=== PATIENT | male | born 1980 | race African-American/Black ===

== ENCOUNTER 2016-10-20 18:45 | Emergency (ER) | payer OTHER ==
[2016-10-20 18:49] VITALS: BP 143/78; PULSE 80; TEMP 97.8; BMI 30.3
[2016-10-20] MEDS ORDERED: diazePAM 5 MG TABLET ONE ×2 (19:18→20:26)
[2016-10-20] MEDS ORDERED: diazePAM 5 MG TABLET PO ONE ×2 (19:18→20:08)
[2016-10-20] MEDS ORDERED: KETOROLAC TROMETHAMINE 60 MG/2 ML VIAL IM ONE (19:18)
[2016-10-20] MEDS ORDERED: KETOROLAC TROMETHAMINE 60 MG/2 ML VIAL ONE (19:18)
--- NOTE | 2016-10-20 19:18 | PDOC ---
History of Present Illness - General Chief Complaint: Back Pain Stated Complaint: BACK PAIN Time Seen by Provider: 10/20/16 18:57 - History of Present Illness Initial Comments: 10/20/16 19:05 CHIEF COMPLAINT: back pain HISTORY OF PRESENT ILLNESS: 35 yo M with no PMH presents to ED with back pain. Patient states he was "pulling myself up onto the fire truck and suddenly felt severe pain to my back, mostly towards the left side." Patient denies any trauma to the back or any other part of body, but states that he "feels like my back is going to pop if I sit up straight." Patient denies any shortness of breath or chest pain. Denies nausea, vomiting, diarrhea, urinary symptoms. No recent travel or sick contacts. PAST MEDICAL HISTORY: Denies past medical history FAMILY HISTORY: Denies SOCIAL HISTORY: Occupation:[employer] Denies tobacco, alcohol, illicit drug use. SURGICAL HISTORY: Denies ALLERGIES: No known drug allergies REVIEW OF SYSTEMS General/Constitutional: Denies fever or chills. Denies weakness, weight change. HEENT: Denies change in vision. Denies ear pain or discharge. Denies sore throat. Cardiovascular: Denies chest pain or shortness of breath. Respiratory: Denies cough, wheezing, or hemoptysis. Gastrointestinal: Denies nausea, vomiting, diarrhea or constipation. Denies rectal bleeding. Genitourinary: Denies dysuria, frequency, or change in urination. Musculoskeletal: Severe pain to middle and lower back. Skin and breasts: Denies rash or easy bruising. Neurologic: Denies headache, vertigo, loss of consciousness, or loss of sensation. PHYSICAL EXAM General Appearance: Well-appearing, appropriately dressed. No apparent distress , no intoxication. HEENT: EOMI, PERRLA, normal ENT inspection, normal voice, TMs normal, pharynx normal. No conjunctival pallor. No photophobia, scleral icterus. Neck: No tenderness to cervical spine. Supple. Trachea midline. No tenderness, rigidity, carotid bruit, stridor, lymphadenopathy, or thyromegaly. Respiratory/Chest: Lungs CTAB. No shortness of breath, chest tenderness, respiratory distress, accessory muscle use. No crackles, rales, rhonchi, stridor , wheezing, dullness Cardiovascular: RRR. S1, S2. Gastrointestinal/Abdominal: Normal bowel sounds. Abdomen soft, non-distended. No tenderness or rebound tenderness. No organomegaly, pulsatile mass, guarding , hernia, hepatomegaly, splenomegaly. Lymphatic: No adenopathy, tenderness. Musculoskeletal/Extremities: Limited ROM to arms due to pain, unable to complete active/passive ROM of arms/shoulders bilaterally. Marked tenderness to muscles lateral to thoracic spine on light palpation. No tenderness to thoracic or lumbar spine. Normal capillary refill. Pelvis Stable. No CVA tenderness. No tenderness to extremities, pedal edema, swelling, erythema or deformity. Full ROM to legs bilaterally. No loss of sensation, no saddles anesthesia, no loss of bowel or bladder function. Integumentary: Appropriate color, dry, warm. No cyanosis, erythema, jaundice or rash Neurologic: senior property accountant II-XII intact. Fully oriented, alert. Appropriate mood/affect. Motor strength 5/5. No appreciable EOM palsy, facial droop or sensory deficit. 10/20/16 22:07 Past History - Past Medical History Allergies/Adverse Reactions: Allergies Allergy/AdvReac Type Severity Reaction Status Date / Time No Known Allergies Allergy Verified 10/20/16 18:47 Home Medications: Ambulatory Orders Prednisone [Deltasone -] 60 mg PO DAILY #12 tablet 11/12/15 Cyclobenzaprine HCl [Flexeril -] 10 mg PO TID PRN #21 tablet 10/20/16 Naproxen [Naprosyn -] 500 mg PO BID #14 tablet 10/20/16 Thyroid Disease: No - Immunization History Immunization Up to Date: Yes - Psycho/Social/Smoking Cessation Hx Anxiety: No Suicidal Ideation: No Smoking Status: No Smoking History: Never smoked Have you smoked in the past 12 months: No Number of Cigarettes Smoked Daily: 0 Information on smoking cessation initiated: No Hx Alcohol Use: No Drug/Substance Use Hx: No Substance Use Type: None *Physical Exam - Vital Signs Last Vital Signs Temp Pulse Resp BP Pulse Ox 97.8 F 80 20 143/78 98 10/20/16 18:47 10/20/16 18:47 10/20/16 18:47 10/20/16 18:47 10/20/16 18:47 Medical Decision Making - Medical Decision Making 10/20/16 19:26 35 yo M with no PMH presents to ED with back pain. Likely muscle strain/spasm secondary to improper body mechanics while "pulling self up onto fire truck." -60 mg Toradol IM -5 mg Valium po. Patient states he arrived via ambulance and will have someone come pick him up from ER. 10/20/2016 20:13 Patient reassessed; states that he has little to no improvement after medication. Additional 5 mg Valium ordered, will reassess. Patient reassessed, states he is feeling much better after the medication. -250 mg Naproxen bid x 7 days -5 mg cyclobenzaprine qhs x 7 days Advised patient to take medication as prescribed and not to operate any vehicles or machinery while on cyclobenzaprine. Advised patient to follow up with orthopedics if pain persists longer than one week. Patient verbalized understanding and agrees to plan. *DC/Admit/Observation/Transfer Diagnosis at time of Disposition: Back muscle spasm - Discharge Dispostion Disposition: HOME Condition at time of disposition: Stable Admit: No - Prescriptions Prescriptions: Cyclobenzaprine HCl [Flexeril -] 10 mg PO TID PRN #21 tablet PRN Reason: Muscle Spasms Naproxen [Naprosyn -] 500 mg PO BID #14 tablet - Referrals Referrals: Ryan Grant MD [Primary Care Provider] - Michelet Cuellar MD [Staff Physician] - - Patient Instructions Printed Discharge Instructions: DI for Muscle Strain, DI for Thoracic Back Pain Additional Instructions: As discussed, please take medication as prescribed. Please do NOT operate machinery or vehicles when taking cyclobenzaprine. Do not engage in any strenuous activities for the next week. Please follow up with orthopedics within the next 3-5 days. If you develop shortness of breath, chest pain, headache, nausea, vomiting, or any new or worsening symptoms, please return to the ER immediately. - Post Discharge Activity Work/School Note: Back to Work
== END 2016-10-20 20:55 | disposition home or self-care (01) ==
LOC: JERFT 18:45
PROC: 3E0233Z Introduction of Anti-inflammatory into Muscle, Percutaneous Approach (ICD-10-PCS; principal; 2016-10-20)
DX: M62.830 Muscle spasm of back (principal); X50.0XXA Overexertion from strenuous movement or load, initial encounter; V68.4XXA Person boarding or alighting a heavy transport vehicle injured in noncollision transport accident, initial encounter; Y92.488 Other paved roadways as the place of occurrence of the external cause; Y93.89 Activity, other specified; Y99.0 Civilian activity done for income or pay
CPT/HCPCS: 99281-25

== ENCOUNTER 2017-02-23 12:22 | Emergency (ER) | payer OTHER, BC ==
[2017-02-23] MEDS ORDERED: IBUPROFEN 400 MG TABLET (FP) PO ONE ×2 (12:34→12:49)
--- NOTE | 2017-02-23 12:34 | PDOC ---
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 Patient reports wearing appropriate attire and his mask while being in an enclosed space. He reports wearing heavy equipment and dragging a charged hose. He is unable to describe the nature of the pain but notes that his pain is exacerbated with minimal musculoskeletal maneuvers. He denies associated symptoms of weakness and paresthesias sensations throughout his extremities. No other complaints. He denies any cough, shortness of breath, visual changes, chest pain, headache, lightheadedness, neck pain, dizziness, palpitations, abdominal pain, nausea, vomiting, diarrhea. Allergies: No Known Drug Allergies Past Surgical History: None reported. Social History: No tobacco, EtOH and recreational drug use. <Anitha Cartagena - Last Filed: 02/23/17 13:02> - General Stated Complaint: LOWER BACK PAIN Time Seen by Provider: 02/23/17 12:32 Past History - Past Medical History Thyroid Disease: No - Immunization History Immunization Up to Date: Yes - Psycho/Social/Smoking Cessation Hx Anxiety: No Suicidal Ideation: No Smoking Status: No Smoking History: Never smoked Have you smoked in the past 12 months: No Number of Cigarettes Smoked Daily: 0 Hx Alcohol Use: No Drug/Substance Use Hx: No Substance Use Type: None <Toni Franklin - Last Filed: 02/23/17 12:48> <Anitha Cartagena - Last Filed: 02/23/17 13:02> - Past Medical History Allergies/Adverse Reactions: Allergies Allergy/AdvReac Type Severity Reaction Status Date / Time No Known Allergies Allergy Verified 10/20/16 18:47 Home Medications: Ambulatory Orders Prednisone [Deltasone -] 60 mg PO DAILY #12 tablet 11/12/15 Cyclobenzaprine HCl [Flexeril -] 10 mg PO TID PRN #21 tablet 10/20/16 Ibuprofen [Motrin -] 600 mg PO QID #28 tablet 02/23/17 Review of Systems - Review of Systems Able to Perform ROS?: Yes Comments:: 02/23/17 12:54 CONSTITUTIONAL: Absent: fever, no chills, no fatigue EYES: Absent: visual changes 0ENT: Absent: ear pain, no sore throat CARDIOVASCULAR: Absent: chest pain, no palpitations RESPIRATORY: Absent: cough, no SOB GI: Absent: abdominal pain, no nausea, no vomiting, no constipation, no diarrhea GENITOURINARY: Absent: dysuria, no frequency, no hematuria MUSCULOSKELETAL: Present: Left lower back pain. Absent: no arthralgia, no myalgia SKIN: Absent: rash NEURO: Absent: headache <CartagenaAnitha mcdowell - Last Filed: 02/23/17 13:02> *Physical Exam - Physical Exam Comments: 02/23/17 12:56 GENERAL: Patient is awake, alert and in no acute distress. Speech is clear and appropriate. HEAD: Atraumatic and nontender. HEENT: Pupils are equal round and reactive to light, extraocular movements are intact. The tympanic membranes are clear, no hemotympanum. No facial deformity. No facial bone tenderness or step-off. No nasal septal hematoma. The oropharynx is clear. No sut is present in the oral or nasal mucosa. NECK: The trachea is midline, there is no stridor. There is no midline cervical spine tenderness, full range of motion of neck. CHEST: Non-tender, no ecchymosis or abrasions. Equal chest wall expansion bilaterally. No flail segments. Lungs are clear to auscultation bilaterally. CARDIOVASCULAR: S1-S2, regular rate and rhythm. No murmurs or rubs. ABDOMEN: Soft, nontender, nondistended. Bowel sounds are normoactive. There is no abdominal or flank ecchymosis. BACK/PELVIS: There is some left lower paraspinal lumbar tenderness to palpation. No midline vertebral body tenderness to palpation. There is no midline thoracic spine tenderness or step-off. Pelvis is stable and nontender. EXTREMITIES: There is no extremity deformity or joint swelling. No focal bony tenderness throughout. NEURO: Alert and oriented x3. Cranial nerves II through XII are intact. 5 out of 5 motor strength x4 extremities. No gross sensory deficits. [id number] is intact. No pronator drift. Gait is stable. SKIN: No abrasions, hematomas, lacerations. PSYCH: Affect is appropriate <Anitha Cartagena - Last Filed: 02/23/17 13:02> Medical Decision Making - Medical Decision Making 02/23/17 12:32 The patient is well-appearing and in no acute distress Vitals noted He denies any smoke inhalation His back pain is clearly musculoskeletal, secondary to a left lumbar paraspinal muscle strain Clinical impression: Musculoskeletal back pain Left lower lumbar paraspinal muscle strain I discussed the physical exam findings, ancillary test results and final diagnoses with the patient. I answered all of the patient's questions. The patient was satisfied with the care received and felt comfortable with the discharge plan and treatment plan. The patient will call their primary care physician within 24 hours to arrange follow-up and will return to the Emergency Department with any new, persistent or worsening symptoms. A portion of this note was documented by scribe services under my direction. I have reviewed the details of the note, within reason, and agree with the documentation with the following case summary and management plan written by me. <Toni Franklin - Last Filed: 02/23/17 12:48> *DC/Admit/Observation/Transfer <Toni Franklin - Last Filed: 02/23/17 12:48> - Attestations Scribe Attestion: 02/23/17 12:56 Documentation prepared by Anitha Cartagena, acting as medical records technician for Toni Franklin MD. <Anitha Cartagena - Last Filed: 02/23/17 13:02> Diagnosis at time of Disposition: Strain of lumbar paraspinal muscle - Discharge Dispostion Disposition: HOME - Prescriptions Prescriptions: Ibuprofen [Motrin -] 600 mg PO QID #28 tablet - Patient Instructions Printed Discharge Instructions: DI for Low Back Pain Additional Instructions: Return to the emergency department immediately with ANY new, persistent or worsening symptoms. You MUST call and follow up with your doctor tomorrow. Please make sure your doctor reviews the results of your emergency department evaluation. - Post Discharge Activity Work/School Note: Back to Work
== END 2017-02-23 12:58 | disposition home or self-care (01) ==
LOC: JER 12:22
DX: S39.012A Strain of muscle, fascia and tendon of lower back, initial encounter (principal); X58.XXXA Exposure to other specified factors, initial encounter; Y93.89 Activity, other specified; Y92.9 Unspecified place or not applicable; Y99.0 Civilian activity done for income or pay
CPT/HCPCS: 99281-25

== ENCOUNTER 2019-10-16 12:03 | Emergency (ER) | payer OTHER ==
[2019-10-16 12:30] VITALS: BP 126/83; PULSE 75; TEMP 97.8; BMI 27.7
--- NOTE | 2019-10-16 13:15 | PDOC ---
History of Present Illness - General Chief Complaint: Injury Stated Complaint: YFD INJURY/WORK RELATED Time Seen by Provider: 10/16/19 12:31 History Source: Patient Exam Limitations: No Limitations - History of Present Illness Initial Comments: 10/16/19 13:12 Patient is a 38-year-old male who presents to the ED with an injury to his right middle finger that he sustained while cleaning a knife. He states the knife slipped and he cut himself. He has a 2 cm laceration to the dorsal aspect of the right middle finger that is a thin flap laceration. There is minimal active bleeding. No tendon injury appreciated. He states he got a tetanus booster about a month ago. Past History - Past Medical History Allergies/Adverse Reactions: Allergies Allergy/AdvReac Type Severity Reaction Status Date / Time No Known Allergies Allergy Verified 10/16/19 12:26 Home Medications: Ambulatory Orders predniSONE [Deltasone -] 60 mg PO DAILY #12 tablet 11/12/15 Cyclobenzaprine HCl [Flexeril -] 10 mg PO TID PRN #21 tablet 10/20/16 Ibuprofen [Motrin -] 600 mg PO QID #28 tablet 02/23/17 COPD: No CHF: No DVT: No Dementia: No Thyroid Disease: No - Immunization History Immunization Up to Date: Yes - Psycho Social/Smoking Cessation Hx Smoking Status: No Smoking History: Never smoked Have you smoked in the past 12 months: No Number of Cigarettes Smoked Daily: 0 Hx Alcohol Use: No Drug/Substance Use Hx: No Substance Use Type: None Review of Systems - Review of Systems Able to Perform ROS?: Yes Constitutional: No: Chills, Fever HEENTM: No: Eye Pain, Blurred Vision, Throat Pain, Throat Swelling Respiratory: No: Cough, Shortness of Breath Cardiac (ROS): No: Chest Pain, Syncope ABD/GI: No: Diarrhea, Nausea, Vomiting, Abdominal cramping Musculoskeletal: No: Joint Pain, Muscle Pain Integumentary: Yes: Other (laceration R middle finger) Neurological: No: Numbness, Tingling Hematologic/Lymphatic: No: Easy Bleeding, Easy Bruising *Physical Exam - Vital Signs Last Vital Signs Temp Pulse Resp BP Pulse Ox 97.8 F 75 17 126/83 97 10/16/19 12:26 10/16/19 12:26 10/16/19 12:26 10/16/19 12:26 10/16/19 12:26 - Physical Exam General Appearance: Yes: Nourished, Appropriately Dressed. No: Apparent Distress Neck: negative: Decreased range of motion Respiratory/Chest: negative: Respiratory Distress, Accessory Muscle Use Cardiovascular: positive: Regular Rhythm, Regular Rate Musculoskeletal: positive: Other (R middle finger with 2.5 cm linera flap laceration to the lateral aspect of the finger with no active bleeding. No sign of infection. No tendon invovlement. ) Extremity: positive: Normal Capillary Refill. negative: Tender Integumentary: positive: Normal Color, Dry Neurologic: positive: Alert, Normal Mood/Affect, Normal Response, Motor Strength 5/5. negative: Sensory Deficit Procedures - Laceration/Wound Repair Lateral Wound Length: to 2.5 cm Wound Explored: clean Wound's Depth, Shape: superficial (flap ), linear Betadine Prep: Yes (3 Betadine swabs) Wound Repaired With: Dermabond Layer Closure: No Sterile Dressing Applied: Yes Splint Applied: Yes Type of Splint Applied: Finger splint Medical Decision Making - Medical Decision Making 10/16/19 13:18 Patient's laceration was repaired and he has been placed in an aluminum finger splint. He has been given wound care instructions. He should return to follow- up with his primary doctor within 1 to 2 days for repeat evaluation. He has been advised that the glue will fall off on its own and he should not pick at it. He should also not apply things like Vaseline or bacitracin. He understands and agrees to treatment plan he is stable for discharge. Discharge - Discharge Information Problems reviewed: Yes Clinical Impression/Diagnosis: Laceration of finger of right hand without damage to nail Qualifiers: Encounter type: initial encounter Finger: middle finger Foreign body presence: without foreign body Qualified Code(s): S61.212A - Laceration without foreign body of right middle finger without damage to nail, initial encounter Condition: Stable Disposition: HOME - Follow up/Referral Referrals: Ryan Grant MD [Primary Care Provider] - - Patient Discharge Instructions Patient Printed Discharge Instructions: DI for Laceration Repair With Dermabond Additional Instructions: Keep your finger clean and dry. Do not apply any lotion, bacitracin or Vaseline to the area where the Dermabond/glue is. Wear the finger splint for about 1 week, you do not have to wear it to bed. Return to the ED for increased bleeding, wound opening up, or any other concerning symptoms. - Post Discharge Activity Work/Back to School Note: Back to Work
== END 2019-10-16 13:31 | disposition home or self-care (01) ==
LOC: JERFT 12:03
PROC: 0HQFXZZ Repair Right Hand Skin, External Approach (ICD-10-PCS; principal; 2019-10-16)
PROC: 2W3JX1Z Immobilization of Right Finger using Splint (ICD-10-PCS; 2019-10-16)
DX: S61.212A Laceration without foreign body of right middle finger without damage to nail, initial encounter (principal); W26.0XXA Contact with knife, initial encounter; Y93.89 Activity, other specified; Y92.89 Other specified places as the place of occurrence of the external cause; Y99.0 Civilian activity done for income or pay
CPT/HCPCS: 99282-25

== ENCOUNTER 2020-06-20 15:11 | Emergency (ER) | payer OTHER ==
[2020-06-20 15:20] VITALS: BP 124/89; PULSE 61; BMI 28.3
[2020-06-20] MEDS ORDERED: KETOROLAC TROMETHAMINE 60 MG/2 ML VIAL IM ONE (16:26)
[2020-06-20] MEDS ORDERED: KETOROLAC TROMETHAMINE 60 MG/2 ML VIAL ONE (16:27)
--- NOTE | 2020-06-20 16:40 | PDOC ---
History of Present Illness - General Chief Complaint: Back Pain Stated Complaint: LOW BACK PAIN Time Seen by Provider: 06/20/20 16:17 History Source: Patient - History of Present Illness Pain Location: reports: back Past History - Medical History Allergies/Adverse Reactions: Allergies Allergy/AdvReac Type Severity Reaction Status Date / Time No Known Allergies Allergy Verified 06/20/20 15:20 Home Medications: Ambulatory Orders Cyclobenzaprine HCl [Flexeril 10 mg] 10 mg PO HS #7 tablet 06/20/20 Naproxen 500 mg PO BID #14 tablet 06/20/20 COPD: No CHF: No DVT: No Dementia: No Thyroid Disease: No - Immunization History Immunization Up to Date: Yes - Psycho-Social/Smoking History Smoking Status: No Smoking History: Unknown if ever smoked Have you smoked in the past 12 months: No Number of Cigarettes Smoked Daily: 0 - Substance Abuse Hx (Audit-C & DAST Scrn) How often the patient has a drink containing alcohol: Monthly or less Score: In Men: 4 or > Positive; In Women: 3 or > Positive: 1 Screen Result (Pos requires Nsg. Audit-10AR): Negative In the last yr the pt used illegal drug/Rx for NonMed reason: No Score: Yes response is considered Positive: 0 Screen Result (Positive result requires Nsg. DAST-10): Negative Review of Systems - Review of Systems ABD/GI: No: Abdominal cramping : No: Burning, Dysuria, Hematuria Musculoskeletal: Yes: Back Pain. No: Muscle Weakness Neurological: No: Numbness, Weakness *Physical Exam - Vital Signs Last Vital Signs Temp Pulse Resp BP Pulse Ox 61 18 124/89 100 06/20/20 15:18 06/20/20 15:18 06/20/20 15:18 06/20/20 15:18 - Physical Exam General Appearance: Yes: Appropriately Dressed, Mild Distress HEENT: positive: Normal Voice Neck: positive: Supple Respiratory/Chest: negative: Respiratory Distress Gastrointestinal/Abdominal: positive: Soft. negative: Tender Musculoskeletal: positive: Vertebral Tenderness (to L lower back, bearing weight). 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 developed left lower back pain, at times in radiating to his left thigh. Pain has persisted throughout the day. Has not taken any pain meds. Denies any sensory changes, lower extremity weakness, bowel or bladder incontinence or saddle anesthesia. No symptoms, nausea vomiting fever or chills. No history of similar back pain see exam M/l MSK back pain No red flags at this time Dc w/ pain control and rest To f/u with PMD as needed Discharge - Discharge Information Problems reviewed: Yes Clinical Impression/Diagnosis: Low back strain Qualifiers: Encounter type: initial encounter Qualified Code(s): S39.012A - Strain of muscle, fascia and tendon of lower back, initial encounter Condition: Stable Disposition: HOME - Additional Discharge Information Prescriptions: Cyclobenzaprine HCl [Flexeril 10 mg] 10 mg PO HS #7 tablet Naproxen 500 mg PO BID #14 tablet - Follow up/Referral Referrals: Ryan Grant MD [Primary Care Provider] - - Patient Discharge Instructions Patient Printed Discharge Instructions: DI for Back Strain or Sprain Additional Instructions: Musculoskeletal back pain because over 90% of back pain presenting to the emergency room. These types of back pain are self-limited and usually improves over several days with or without pain medication If pain persist for 2 weeks or more, please follow-up with your PMD - Post Discharge Activity Work/Back to School Note: Back to Work
== END 2020-06-20 17:03 | disposition home or self-care (01) ==
LOC: JERFT 15:11
PROC: 3E0233Z Introduction of Anti-inflammatory into Muscle, Percutaneous Approach (ICD-10-PCS; principal; 2020-06-20)
DX: S39.012A Strain of muscle, fascia and tendon of lower back, initial encounter (principal)
CPT/HCPCS: 99284-25

== ENCOUNTER 2020-10-24 09:04 | Emergency (ER) | payer BC, OTHER ==
[2020-10-24 09:12] VITALS: BMI 28.3
[2020-10-24] MEDS ORDERED: FAMOTIDINE 20 MG/50 ML IVPB 20 MG/50 ML MG IVPB ONE ×2 (09:53→10:04)
[2020-10-24] MEDS ORDERED: ACETAMINOPHEN 1000 MG/100 ML VIAL (NON FORMULARY) IVPB ONE (09:54)
[2020-10-24] MEDS ORDERED: SODIUM CHLORIDE 0.9% 500 ML INFUS.BAG IV ONE (09:54)
[2020-10-24] MEDS ORDERED: ACETAMINOPHEN INJECTION 100 ML IVPB ONE (10:04)
[2020-10-24 10:53] LABS: BASO % 1.2 % (0-2.0); EOS % 5.9 % (0-4.5); HEMATOCRIT 42.9 % (35.4-49); HEMOGLOBIN 14.7 GM/dL (11.7-16.9); MCH 29.8 pg (25.7-33.7); MCHC 34.3 g/dl (32.0-35.9); MEAN CELL VOLUME 86.9 fl (80-96); MEAN PLT VOLUME 9.6 fl (7.5-11.1); MONO % 8.8 % (3.8-10.2); NEUT % 57.1 % (42.8-82.8); PLATELET COUNT 173 K/MM3 (134-434); RBC 4.94 M/mm3 (4.00-5.60); RDW 12.7 % (11.9-15.9); WHITE BLOOD COUNT 4.1 K/mm3 (4.0-10.0)
[2020-10-24 11:21] LABS: POTASSIUM 4.3 mmol/L (3.5-5.1)
[2020-10-24 11:23] LABS: ALBUMIN 4.1 g/dl (3.4-5.0); CALCIUM 9.4 mg/dL (8.5-10.1)
[2020-10-24 11:25] LABS: BLOOD UREA NITROGEN 10.9 mg/dL (7-18)
[2020-10-24 11:27] LABS: CREATININE 0.9 mg/dL (0.55-1.3)
[2020-10-24 11:28] LABS: BILIRUBIN,TOTAL 0.9 mg/dL (0.2-1); TOT PROT 7.6 g/dl (6.4-8.2)
[2020-10-24] MEDS ORDERED: KETOROLAC TROMETHAMINE 15 MG/ML VIAL IVPUSH ONE (12:12)
[2020-10-24] MEDS ORDERED: KETOROLAC TROMETHAMINE 15 MG/ML VIAL ONE (12:27)
[2020-10-24 13:40] VITALS: BP 116/72; PULSE 78; TEMP 98.1
== END 2020-10-24 13:40 | disposition home or self-care (01) ==
LOC: JER 09:04
PROC: 3E033NZ Introduction of Analgesics, Hypnotics, Sedatives into Peripheral Vein, Percutaneous Approach (ICD-10-PCS; principal; 2020-10-24)
PROC: 3E033GC Introduction of Other Therapeutic Substance into Peripheral Vein, Percutaneous Approach (ICD-10-PCS; 2020-10-24)
PROC: 3E0333Z Introduction of Anti-inflammatory into Peripheral Vein, Percutaneous Approach (ICD-10-PCS; 2020-10-24)
DX: K82.4 Cholesterolosis of gallbladder (principal); R10.10 Upper abdominal pain, unspecified
CPT/HCPCS: 36415; 76705-TC; 80053; 83690; 85025; 99285-25; J0131

== ENCOUNTER → 2021-02-04 | Day surgery (SDC) | payer BC, OTHER | END | disposition home or self-care (01) | LOC: JRADIR 10:29 | PROVIDERS: ATTEND Orthopaedic Surgery | PROC: BP18YZZ Fluoroscopy of Right Shoulder using Other Contrast (ICD-10-PCS; principal; 2021-02-04) | PROC: BP38Y0Z Magnetic Resonance Imaging (MRI) of Right Shoulder using Other Contrast, Unenhanced and Enhanced (ICD-10-PCS; 2021-02-04) | DX: M25.511 Pain in right shoulder (principal) | CPT/HCPCS: 23350; 73040-TC-FY; 73222-TC ==

== ENCOUNTER 2022-06-28 18:44 | Emergency (ER) | payer OTHER, BC ==
[2022-06-28 19:09] VITALS: BP 130/77; PULSE 67; RESP 18; TEMP 98.1; BMI 26.4
[2022-06-28] MEDS ORDERED: diazePAM 5 MG TABLET PO ONE (19:33)
[2022-06-28] MEDS ORDERED: KETOROLAC TROMETHAMINE 30 MG/1 ML VIAL IM ONE (19:33)
[2022-06-28] MEDS ORDERED: diazePAM 5 MG TABLET ONE (19:37)
[2022-06-28] MEDS ORDERED: KETOROLAC TROMETHAMINE 30 MG/1 ML VIAL ONE (19:37)
== END 2022-06-28 21:49 | disposition home or self-care (01) ==
LOC: JERFT 18:44
PROC: 3E0233Z Introduction of Anti-inflammatory into Muscle, Percutaneous Approach (ICD-10-PCS; principal; 2022-06-28)
DX: M62.830 Muscle spasm of back (principal)
CPT/HCPCS: 72125-TC; 99284-25

== ENCOUNTER 2022-07-26 04:27 | Day surgery (SDC) | payer BC, OTHER ==
[2022-07-25 16:04] VITALS: BMI 25.7
[2022-07-26] MEDS ORDERED: LIDOCAINE HCL/PF 1% SDV 5ML VIAL ONE (07:29)
[2022-07-26] MEDS ORDERED: LIDOCAINE HCL/PF 2% SDV 5ML VIAL ONE (07:37)
[2022-07-26] MEDS ORDERED: SODIUM CHLORIDE 0.9% P/F 10 ML VIAL IJ ONE (07:37)
[2022-07-26] MEDS ORDERED: LIDOCAINE HCL 1% PRESERVATIVE FREE - 30ML VIAL IJ ONE ×2 (08:23→08:27)
[2022-07-26] MEDS ORDERED: LIDOCAINE HCL/PF 2% SDV 5ML VIAL INF ONE (08:23)
[2022-07-26 09:27] VITALS: RESP 18; TEMP 97.3
[2022-07-26 10:07] VITALS: BP 127/71; PULSE 67
== END 2022-07-26 10:05 | disposition home or self-care (01) ==
LOC: JASU-SURG 04:27
PROVIDERS: ATTEND Pain Medicine Pain Medicine
PROC: 01HY3MZ Insertion of Neurostimulator Lead into Peripheral Nerve, Percutaneous Approach (ICD-10-PCS; principal; 2022-07-26 08:00)
DX: G89.4 Chronic pain syndrome (principal); M25.511 Pain in right shoulder
CPT/HCPCS: 64555; C1897; C1778